=== PATIENT | male | born 1945 | race Caucasian/White ===

== ENCOUNTER 2016-09-30 11:01 | Inpatient (IN) | payer BC ==
--- NOTE | ~2016-09-30 | DS ---
Discharge Summary [facility] [address] [place]. [address] NAME: PEBBLES PLEITEZ : 45 STATUS : DIS IN PAT#: [id number] AGE: 71 ADM/REG DATE : 09/30/16 MR#: [id number] REPORT SERV DATE: 10/11/16 DICTATED BY: KRUNAL MOYER DATE: 10/10/16 REPORT STATUS : Draft TRANSCRIBED BY: MODL DATE: 10/10/16 ADMISSION DATE: 09/30/2016 DISCHARGE DATE: 10/02/2016 Please note the patient left against medical advice despite discussion with this editorial writer, charge nurse, multiple floor nurses, and the presence of daughter whom the patient left with. DISCHARGE DIAGNOSES: 1. Acute kidney injury. 2. Headache. 3. Pancreatitis. 4. Left-sided pneumonia. 5. Dehydration. 6. Incidental lung nodule. HOSPITAL COURSE: Please see H and P for complete details. HISTORY OF PRESENT ILLNESS: The patient is a 71-year-old male, fairly healthy previously, who presented with headache, symptoms of dehydration, and has newly found to be in RANJAN. The patient was aggressively treated for RANJAN. On additional scanning, the patient was noted to have pancreatitis on labs. Imaging did not show any progression. It appears that the patient has likely been dealing with his pancreatitis for over a week, which may have been contributing factor to the patient's dehydration and RANJAN status. The patient was reporting not having well p.o. intake. After aggressive IV fluid hydration, the patient was able to tolerate p.o. and symptomatic, was able to eat, although pancreas enzymes had not completely resolved. The patient did have a left-sided pneumonia. Was treated with Levaquin for GI and community-acquired pneumonia. This was thought presumptive bacterial initially. However, cultures were not confirmed. After the patient's electrolytes were improved and volume status began to improve, the patient was requested to remain for completion of improvement of pancreatitis. Risks and benefits discussed with the patient in front of daughter, who was also in agreement with medical staff plan. The patient reports final statement reported that "it is what I want to do and it is my decision." The patient was able to relay back risks and benefits, and was reconfirmed with discussion with family. The patient reconfirmed with nurse manager of maintenance and multiple staff members. The patient did have incidental lung nodule, which him and family were discussed about and recommended followup. The patient reports that he has had this lung nodule for many years and he has had followup for it and was told he did not need to follow up again. I have advised, since I do not have access to these records, to have the patient follow up with his PCP along with regular labs and to maintain these records for completion of care. Greater than 30 minutes was spent with the patient education, but again, the patient left AMA. Discharge Summary [address] [place]. [address] NAME: PEBBLES PLEITEZ : 45 STATUS : DIS IN PAT#: [id number] AGE: 71 ADM/REG DATE : 09/30/16 MR#: [id number] REPORT SERV DATE: 10/11/16 DICTATED BY: KRUNAL MOYER DATE: 10/10/16 REPORT STATUS : Draft TRANSCRIBED BY: ABILIO DATE: 10/10/16 DDN/ABILIO Krunal Moyer MD / [id number] CC: Krunal Moyer MD
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
[2016-09-30 10:25] LABS: BASOPHILS 0.1 %; BASOPHILS ABSOLUTE 0.01 10/3/uL (0.0-0.16); EOSINOPHILS 0 %; HEMATOCRIT 43.2 % (40.0-51.0); HEMOGLOBIN 15.6 g/dL (13.6-17.8); IMMATURE GRANULOCYTES 0.4 %; IMMATURE GRANULOCYTES ABSOLUTE 0.04 10/3/uL (0.0-0.11); LYMPHOCYTES 6.9 %; LYMPHOCYTES ABSOLUTE 0.78 10/3/uL (0.67-4.30); MEAN CORPUS HGB CONC 36.1 g/dL (32.0-36.0); MEAN CORPUSCULAR HEMOGLOB 34.1 pg (26.0-34.0); MEAN CORPUSCULAR VOLUME 94.5 fL (80-100); MEAN PLATELET VOLUME 9.8 fL (9.2-13.0); MONOCYTES 5.7 %; MONOCYTES ABSOLUTE 0.64 10/3/uL (0.21-1.20); NEUTROPHILS 86.9 %; NEUTROPHILS ABSOLUTE 9.84 10/3/uL (2.02-8.40); PLATELET COUNT 204 10/3/uL (150-400); RBC DISTRIBUTION WIDTH 12.6 % (12.0-16.0); RED CELL COUNT 4.57 10/6/uL (4.7-6.1); WHITE BLOOD CELLS 11.3 10/3/uL (4.5-10.5)
[2016-09-30 10:26] LABS: MANUAL DIFF NO %
[2016-09-30 10:41] LABS: A/G RATIO 0.6 (0.7-1.9); ALBUMIN 2.9 G/DL (3.5-5.0); ALKALINE PHOSPHATASE 62 U/L (45-117); BUN (BLOOD UREA NITROGEN) 51 MG/DL (6-23); CALCIUM, SERUM 9.7 MG/DL (8.5-10.4); CHLORIDE, SERUM 95 MMOL/L (96-112); CO2 (CARBON DIOXIDE) 26 MMOL/L (24-34); CREATININE 2.11 MG/DL (0.70-1.30); GFR AFRICAN AMERICAN 35 ML/MIN (>=60); GFR NON AFRICAN AMERICAN 31 ML/MIN (>=60); GLOBULIN 4.7 G/DL (2.5-4.1); GLUCOSE, SERUM 106 MG/DL (60-99); POTASSIUM, SERUM 4.2 MMOL/L (3.5-5.3); SGOT(AST) 79 U/L (5-40); SGPT(ALT) 62 U/L (5-65); SODIUM, SERUM 131 MMOL/L (135-148); TOTAL BILIRUBIN 1.1 MG/DL (0-1.2); TOTAL PROTEIN 7.6 G/DL (6.0-8.5)
[2016-09-30 11:15] LABS: ASCORBIC ACID (UR NOT ORDER) NEG (NEG); BILIRUBIN, URINE NEGATIVE (NEG); ER URINALYSIS TAT 0 Hrs 09 Mins; KETONE, URINE TRACE MG/DL (NEG); LEUKOCYTE ESTERASE(NOT OR NEG (NEG); NITRITE (URINE) NEG (NEG); WBC (NOT ORDERED) (RFLEX) 4 (0-5)
[2016-09-30] MEDS ORDERED: NORCO1 TA1 PO (11:48)
[2016-09-30] MEDS ORDERED: ULTRAM50 PO (11:49)
[2016-09-30] MEDS ORDERED: FLEX PO (11:49)
[2016-09-30] MEDS ORDERED: PRIN10 PO (11:50)
[2016-09-30] MEDS ORDERED: THERA MULTI1 ML PO (11:51)
[2016-10-01 10:35] LABS: BASOPHILS 0.2 %; BASOPHILS ABSOLUTE 0.01 10/3/uL (0.0-0.16); EOSINOPHILS 0 %; HEMOGLOBIN 15.3 g/dL (13.6-17.8); IMMATURE GRANULOCYTES 0.7 %; IMMATURE GRANULOCYTES ABSOLUTE 0.04 10/3/uL (0.0-0.11); LYMPHOCYTES ABSOLUTE 0.43 10/3/uL (0.67-4.30); MEAN CORPUS HGB CONC 34.8 g/dL (32.0-36.0); MEAN CORPUSCULAR HEMOGLOB 33.3 pg (26.0-34.0); MEAN CORPUSCULAR VOLUME 95.7 fL (80-100); MEAN PLATELET VOLUME 9.4 fL (9.2-13.0); MONOCYTES 7.8 %; MONOCYTES ABSOLUTE 0.48 10/3/uL (0.21-1.20); NEUTROPHILS 84.3 %; NEUTROPHILS ABSOLUTE 5.17 10/3/uL (2.02-8.40); PLATELET COUNT 209 10/3/uL (150-400); RBC DISTRIBUTION WIDTH 12.3 % (12.0-16.0)
[2016-10-01 10:36] LABS: MANUAL DIFF NO %; WHITE BLOOD CELLS 6.1 10/3/uL (4.5-10.5)
[2016-10-01 10:52] LABS: A/G RATIO 0.6 (0.7-1.9); ALBUMIN 2.5 G/DL (3.5-5.0); ALKALINE PHOSPHATASE 77 U/L (45-117); BUN (BLOOD UREA NITROGEN) 32 MG/DL (6-23); CALCIUM, SERUM 8.9 MG/DL (8.5-10.4); CHLORIDE, SERUM 100 MMOL/L (96-112); CO2 (CARBON DIOXIDE) 29 MMOL/L (24-34); CREATININE 1.24 MG/DL (0.70-1.30); GFR AFRICAN AMERICAN 67 ML/MIN (>=60); GFR NON AFRICAN AMERICAN 58 ML/MIN (>=60); GLOBULIN 4.4 G/DL (2.5-4.1); GLUCOSE, SERUM 99 MG/DL (60-99); POTASSIUM, SERUM 3.8 MMOL/L (3.5-5.3); SGOT(AST) 128 U/L (5-40); SGPT(ALT) 99 U/L (5-65); SODIUM, SERUM 135 MMOL/L (135-148); TOTAL PROTEIN 6.9 G/DL (6.0-8.5)
[2016-10-01 11:46] LABS: PROCALCITONIN 1.45 ng/mL (<0.5)
[2016-10-01 11:59] LABS: CHOL/HDL RATIO(NOT ORDER) 5.9 (0-5); CHOLESTEROL 135 MG/DL (< 200); HDL CHOLESTEROL 23 MG/DL (> 39); LDL CHOLESTEROL 80 MG/DL (< 130); NON-HDL CHOLESTEROL 112 MG/DL (< 160); TRIGLYCERIDE 162 MG/DL (< 150)
[2016-10-02 06:49] LABS: BASOPHILS 0.1 %; BASOPHILS ABSOLUTE 0.01 10/3/uL (0.0-0.16); EOSINOPHILS 0.3 %; EOSINOPHILS ABSOLUTE 0.02 10/3/uL (0.0-0.53); HEMOGLOBIN 13.3 g/dL (13.6-17.8); IMMATURE GRANULOCYTES 0.3 %; IMMATURE GRANULOCYTES ABSOLUTE 0.02 10/3/uL (0.0-0.11); LYMPHOCYTES 12.5 %; LYMPHOCYTES ABSOLUTE 0.88 10/3/uL (0.67-4.30); MEAN CORPUS HGB CONC 34.6 g/dL (32.0-36.0); MEAN CORPUSCULAR HEMOGLOB 33.3 pg (26.0-34.0); MEAN CORPUSCULAR VOLUME 96.2 fL (80-100); MEAN PLATELET VOLUME 9.4 fL (9.2-13.0); MONOCYTES 9.8 %; MONOCYTES ABSOLUTE 0.69 10/3/uL (0.21-1.20); NEUTROPHILS ABSOLUTE 5.42 10/3/uL (2.02-8.40); PLATELET COUNT 211 10/3/uL (150-400); RBC DISTRIBUTION WIDTH 12.4 % (12.0-16.0); RED CELL COUNT 3.99 10/6/uL (4.7-6.1)
[2016-10-02 06:50] LABS: HEMATOCRIT 38.4 % (40.0-51.0); MANUAL DIFF NO %
[2016-10-02 07:10] LABS: A/G RATIO 0.5 (0.7-1.9); ALBUMIN 2.1 G/DL (3.5-5.0); ALKALINE PHOSPHATASE 70 U/L (45-117); BUN (BLOOD UREA NITROGEN) 22 MG/DL (6-23); CALCIUM, SERUM 8.3 MG/DL (8.5-10.4); CHLORIDE, SERUM 105 MMOL/L (96-112); CO2 (CARBON DIOXIDE) 25 MMOL/L (24-34); CREATININE 1.03 MG/DL (0.70-1.30); GFR AFRICAN AMERICAN 84 ML/MIN (>=60); GFR NON AFRICAN AMERICAN 73 ML/MIN (>=60); GLOBULIN 3.9 G/DL (2.5-4.1); GLUCOSE, SERUM 96 MG/DL (60-99); POTASSIUM, SERUM 3.6 MMOL/L (3.5-5.3); SGOT(AST) 102 U/L (5-40); SGPT(ALT) 90 U/L (5-65); SODIUM, SERUM 139 MMOL/L (135-148); TOTAL BILIRUBIN 0.5 MG/DL (0-1.2)
== END 2016-10-02 18:22 | disposition left against medical advice (07) | DRG 682 ==
LOC: ER 11:01 → 4SO 13:00
PROVIDERS: Emergency Medicine; Student in an Organized Health Care Education/Training Program
DX: N17.9 Acute kidney failure, unspecified (principal); J18.9 Pneumonia, unspecified organism; E86.0 Dehydration; T46.4X5A Adverse effect of angiotensin-converting-enzyme inhibitors, initial encounter; I12.9 Hypertensive chronic kidney disease with stage 1 through stage 4 chronic kidney disease, or unspecified chronic kidney disease; G89.29 Other chronic pain; M54.5 Low back pain; N18.9 Chronic kidney disease, unspecified; R91.1 Solitary pulmonary nodule; R51 Headache; Y92.009 Unspecified place in unspecified non-institutional (private) residence as the place of occurrence of the external cause
CPT/HCPCS: 70450; 71020; 74176; 76775; 80048; 80053; 80061; 80076; 81001; 82140; 83605; 83690; 83735; 84145; 84484; 85025; 85610; 85652; 85730; 87040; 93005; 93975; 99284; 99285; A9270-GY; G0378; J1170